=== PATIENT | female | born 1980 | race Caucasian/White ===

== ENCOUNTER 2017-08-22 11:56 | Emergency (ER) | payer OTHER ==
[~2017-08-22] VITALS: Ht 160 cm; Wt 81.6 kg
[2017-08-22 12:30] VITALS: BP 169/76
[2017-08-22] MEDS ORDERED: XYLOCAINE 2%-EPI 1:100,000 ONE (12:32)
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
[2017-08-22] MEDS ORDERED: BACTRIM DS PO STA (12:54)
[2017-08-22] MEDS ORDERED: BACTRIM DS ONE (13:24)
[2017-08-22] MEDS ORDERED: TRIPLE ANTIBIOTIC OINTMENT TP ONE (13:46)
[2017-08-22 14:17] VITALS: BP 169/76
== END 2017-08-22 14:12 | disposition home or self-care (01) ==
LOC: ER 11:56
DX: L02.31 Cutaneous abscess of buttock (principal); F17.200 Nicotine dependence, unspecified, uncomplicated; F15.10 Other stimulant abuse, uncomplicated
CPT/HCPCS: 10060; 99283